=== PATIENT | female | born 1985 | race Caucasian/White ===

== ENCOUNTER 2018-09-10 16:47 | Emergency (ER) | payer OTHER ==
[~2018-09-10] VITALS: Ht 172.7 cm; Wt 61.2 kg
--- NOTE | 2018-09-10 17:39 | ED Upper Extremity ---
General Chief Complaint: Upper Extremity Stated Complaint: INFECTED FINGER HAD A SPLINTER Nursing Triage Note: PT ARRIVED WITH OFFICER WITH C/O RIGHT RING FINGER INFECTION, DRAINAGE. NO INJURY Nursing Sepsis Screen: No Definite Risk Source: patient Exam Limitations: no limitations (SAMANTHA REED) History of Present Illness Date Seen by Provider: Sep 10, 2018 Time Seen by Provider: 17:22 Initial Comments The patient presents to the ER under police custody from the retirement where she was arrested on the sixth and during her rashes fell on the ground and had stubbed her right hand fourth digit distally. She's having some pain and started look like an infection so she and her friends lanced it at the retirement. It continued looked infected so they took her to the nurse who started her on gentamicin 300 mg and Keflex which helped some but did not finish the infection. Yesterday the nurse practitioner lanced the wound again but still just getting some slow drainage of purulence out of the finger. She's using Tylenol and Motrin twice a day but she says it does not help during the middle the day but that's only times that it's available. She's not had any fevers or chills. No prior injury to finger. She does have some decreased flexion of the distal phalanges. (SAMANTHA REED) Allergies and Home Medications Allergies Coded Allergies: No Known Drug Allergies (Unverified , 09/10/18) Home Medications Doxycycline Hyclate 100 Mg Tablet, 100 MG PO BID Prescribed by: AKOSUA FIGUEROA on 09/10/181850 Sulfamethoxazole/Trimethoprim 1 Each Tablet, 1 EACH PO BID Prescribed by: AKOSUA FIGUEROA on 09/10/181850 Patient Home Medication List Home Medication List Reviewed: Yes (SAMANTHA REED) Review of Systems Constitutional: No chills, No fever EENTM: No eye pain, No tearing Respiratory: No cough, No short of breath Cardiovascular: No edema Gastrointestinal: No abdominal pain, No constipation, No diarrhea Genitourinary: No discharge, No dysuria (SAMANTHA REED) Past Egnqdna-Asqxkh-Gsplif Hx Patient Social History Alcohol Use: Occasionally Uses Recreational Drug Use: No Recent Foreign Travel: No Contact w/Someone Who Travel: No Recent Infectious Disease Expo: No Recent Hopitalizations: No (SAMANTHA REED) Seasonal Allergies Seasonal Allergies: No (SAMANTHA REED) Past Medical History Respiratory: No Cardiac: No Neurological: Yes Seizure Disorder Last Menstrual Period: Sep 03, 2018 Genitourinary: No Gastrointestinal: No Musculoskeletal: No Endocrine: No HEENT: No Integumentary: No (SAMANTHA REED) Physical Exam Vital Signs Vital Signs - First Documented 09/10/18 16:56 Temp 98.7 Pulse 74 Resp 18 B/P (MAP) 150/90 (110) Pulse Ox 99 O2 Delivery Room Air (AKOSUA WANG MD) Vital Signs Capillary Refill : Less Than 3 Seconds (SAMANTHA REED) Height, Weight, BMI Height: 5'8.00" Weight: 135lbs. oz. 61.555504cy; BMI Method:Stated General Appearance: WD/WN, no apparent distress HEENT: PERRL/EOMI, pharynx normal Neck: full range of motion, normal inspection Cardiovascular: normal peripheral pulses, regular rate, rhythm Respiratory: no respiratory distress, no accessory muscle use Elbow/Forearm: normal inspection, non-tender, Right Wrist: Yes normal inspection, Yes non-tender, Yes no evidence of injury, Yes normal ROM Hand: swelling (distal phalanx is erythematous swollen has a large open area of it's been I&D recently with some thin secretions coming from it. It is tender to palpation there is no definite fluctuance or evidence of pus in the pulp.) Neurologic/Tendon: tendon function deficit (lacks flexion of the distal phalanx of the fourth digit on the right hand) Neurologic/Psychiatric: no motor/sensory deficits, alert (SAMANTHA REED) Progress/Results/Core Measures Results/Orders My Orders Orders - AKOSUA WANG MD Mupirocin Ointment (Bactroban Ointment (09/10/18 21:00) Dipht,Pertuss(Acell),Tet Adult (Boostrix (09/10/18 18:30) Wound Culture (09/10/18 18:28) Vancomycin Injection (Vancomycin Injecti (09/10/18 18:30) (AKOSUA WANG MD) Medications Given in ED Current Medications Medications Dose Ordered Sig/Leila Route Start Time Stop Time Status Last Admin Dose Admin Diphtheria/ Tetanus/Acell Pertussis 0.5 ml ONCE ONCE IM 09/10/18 18:30 09/10/18 18:32 DC 09/10/18 18:45 0.5 ML Lidocaine HCl 20 ml ONCE ONCE INJ 09/10/18 18:00 09/10/18 18:01 DC 09/10/18 17:54 2 ML (AKOSUA WANG MD) Vital Signs/I&O 09/10/18 20:11 Temp 98.7 Pulse 75 Resp 18 B/P (MAP) 121/90 (100) Pulse Ox 99 O2 Delivery Room Air 09/11/18 00:00 Intake Total 270 ml Balance 270 ml (AKOSUA WANG MD) Blood Pressure Mean: 110 Progress Progress Note : Time: 17:38 Progress Note Probably increase her antibiotic coverage for MRSA by using bacitracin topically and putting her on double strength Bactrim 2 tablets twice a day. We' ll give her some Toradol for her pain now. Give her some Rocephin. Should consider putting her on probiotics and she's been on extended course of antibiotics. Obtain an x-ray of the fingers looking for a destructive lesions or evidence of osteomyelitis. After the Toradol we'll do a digital block and a better clean out and exploration of her wound. (SAMANTHA REED) Progress Note : Progress Note I assumed care of this patient from Dr. Reed after he performed a digital block. The fingertip was reopened at the site of the prior incision using a number 11 scalpel. Skin was cleaned with chlorhexidine and sterile saline prior to incision. After the finger was opened, wound was explored with hemostats. Old blood drained from the wound but there appeared to be no purulent drainage. Wound culture was collected from inside the wound. X-ray demonstrated probable osteomyelitis of the distal phalanx. Patient was treated with Rocephin and vancomycin. Case was discussed with Dr. Rivera who recommended discharge on doxycycline and Bactrim. He would like to see her this week in his office. Wound was dressed with Bactroban and gauze. An AlumaFoam splint was fitted to protect the fingertip. (AKOSUA WANG MD) Diagnostic Imaging Diagonstic Imaging: Xray Plain Films/CT/US/NM/MRI: other (right fingers) Reviewed: Reviewed by Me (SAMANTHA REED) Comments X-ray of the right hand viewed by me and report reviewed. See report below: NAME: STEPHON GREGORIO [facility] REC#: [id number] PT STATUS: REG ER : 1985 PHYSICIAN: SAMANTHA REED MD ADMIT DATE: 09/10/18/ER Draft Date of Exam:09/10/18 FINGER(S) INDICATION: Infection of the fourth finger. TIME OF EXAM 5:59 PM TECHNIQUE: 3 views of the right fourth finger were obtained. FINDINGS: Soft tissue swelling at the distal aspect of the fourth finger. There also appears to be some erosive changes of the tip of the fourth finger at the tuft suspicious for osteomyelitis. No soft tissue gas is seen. No definite radiopaque foreign body is seen. Proximal and mid phalanx are unremarkable. IMPRESSION: Soft tissue swelling of the distal fourth finger with findings suspicious for osteomyelitis at the tuft. No other abnormality is seen. Dictated on workstation # [id number] Dict: 09/10/181818 Trans: 09/10/18 1829 [facility] [id number] Interpreted by: TRUNG SANCHEZ MD (AKOSUA WANG MD) Departure Impression Primary Impression: Osteomyelitis of finger Additional Impression: Cellulitis, finger Qualified Codes: L03.011 - Cellulitis of right finger Disposition: 01 HOME, SELF-CARE Condition: Improved Departure-Patient Inst. Decision time for Depature: 18:48 (AKOSUA WANG MD) Referrals: ROBSON RIVERA MD Patient Instructions: Osteomyelitis Add. Discharge Instructions: It is very important that you follow-up with Dr. Rivera in his clinic this week. Please call to more morning for an appointment time. Soak the finger in Hibiclens (chlorhexidine soap provided) and water for about 15 minutes 3 times a day for the next couple of days. Apply Bactroban ointment and a thin layer to the tip of the finger after soaking. You may use the splint to protect the tip of the finger. You may use ibuprofen up to 600 mg every 6 hours as needed for pain. You may also use Tylenol (acetaminophen) up to 1000 mg every 6 hours as needed for additional pain relief. Return to care promptly you have worsening symptoms, especially if you develop fevers over 100. All discharge instructions reviewed with patient and/or family. Voiced understanding. Scripts Doxycycline Hyclate (Doxycycline Hyclate) 100 Mg Tablet 100 MG PO BID, #28 TAB Prov: AKOSUA WANG MD 09/10/18 Sulfamethoxazole/Trimethoprim (Bactrim Ds Tablet) 1 Each Tablet 1 EACH PO BID, #28 TAB Prov: AKOSUA WANG MD 09/10/18 Copy Copies To 1: ROBSON RIVERA MD, TITUS J Sep 10, 2018 17:39 AKOSUA WANG MD Sep 10, 2018 18:36
[2018-09-10] MEDS ORDERED: cefTRIAXone FOR IV USE 1,000 MG in WATER (STERILE) FOR INJECTION 10 ML IV ONE (17:45)
[2018-09-10] MEDS ORDERED: KETOROLAC 30 MG/ML VIAL IVP ONE (17:45)
[2018-09-10] MEDS ORDERED: LIDOCAINE 1% INJ 20 ML 20 ML VIAL INJ ONE (18:00)
[2018-09-10] MEDS ORDERED: VANCOMYCIN INJECTION 1,000 MG in NS (IVPB) 250 ML IV SCH (18:30)
[2018-09-10] MEDS ORDERED: TETANUS,DIPTH,PERTUSS P/F (BOOSTRIX) 0.5 ML VIAL IM ONE (18:30)
--- NOTE | 2018-09-10 18:30 | Diagnostic Imaging Report ---
INDICATION: Infection of the fourth finger. TIME OF EXAM 5:59 PM TECHNIQUE: 3 views of the right fourth finger were obtained. FINDINGS: Soft tissue swelling at the distal aspect of the fourth finger. There also appears to be some erosive changes of the tip of the fourth finger at the tuft suspicious for osteomyelitis. No soft tissue gas is seen. No definite radiopaque foreign body is seen. Proximal and mid phalanx are unremarkable. IMPRESSION: Soft tissue swelling of the distal fourth finger with findings suspicious for osteomyelitis at the tuft. No other abnormality is seen. Dictated by: Dictated on workstation # [id number]
[2018-09-10] MEDS ORDERED: SULF1TAB35 PO (18:51)
[2018-09-10] MEDS ORDERED: DOXY100T2 PO (18:51)
--- NOTE | 2018-09-10 19:00 | NUR ---
ASSUMED CARE OF PT @ THIS TIME. REPORT RECIEVED FROM GIOVANA LEYVA.
[2018-09-10 20:11] VITALS: BP 121/90
[2018-09-10] MEDS ORDERED: MUPIROCIN 2% OINT 22 GM (BACTROBAN) TUBE TOP SCH (21:00)
== END 2018-09-10 20:15 | disposition home or self-care (01) ==
LOC: ER 16:52
DX: M86.141 Other acute osteomyelitis, right hand (principal); L03.011 Cellulitis of right finger; G40.909 Epilepsy, unspecified, not intractable, without status epilepticus
CPT/HCPCS: 73140; 87070; 87077; 87205; 90715